=== PATIENT | female | born 1970 | race African-American/Black ===

== ENCOUNTER 2018-10-04 09:11 | Inpatient (IN) | payer MEDICAID ==
[~2018-10-04] VITALS: Ht 152.4 cm; Wt 57.6 kg
[~2018-10-04 09:11] MED LIST: ALBU18HF2 IH; QUET300T2 PO
[2018-10-04] MEDS ORDERED: MAGNESIUM 2 G PREMIX 50 ML IV STA (09:20)
[2018-10-04] MEDS ORDERED: IPRATROPIUM BROMIDE (0.02%) 0.5MG/2.5ML NEB HHN STA (09:20)
[2018-10-04] MEDS ORDERED: ALBUTEROL (0.083%) 2.5MG/3ML NEB HHN STA (09:20)
[2018-10-04] MEDS ORDERED: METHYLPREDNISOLONE SOD SUCC 125 MG/2 ML VIAL IV STA (09:20)
[2018-10-04 09:59] LABS: BASOPHILS % 0.8 % (0.0-2.0); EOSINOPHILS % 8.4 % (0.0-5.0); HEMATOCRIT. 43.6 % (36.0-48.0); HEMOGLOBIN. 14.1 g/dL (12.0-16.0); LYMPHOCYTES % 36.6 % (20.0-50.0); MEAN CORPUSCULAR HEMOGLOBIN 27.9 pg (28.0-32.0); MEAN CORPUSCULAR VOLUME 86.4 fL (81.0-99.0); MEAN PLATELET VOLUME 8.7 fl (7.4-10.4); MONOCYTES % 10.1 % (2.0-8.0); NEUTROPHILS % 44.1 % (40.0-76.0); PLATELET 214 x1000/uL (130-400); RED BLOOD CELL COUNT 5.05 mill/uL (4.2-5.4); RED CELL DISTRIBUTION WIDTH 16.1 % (11.6-14.6)
[2018-10-04 10:00] LABS: CHLORIDE 105 mEq/L (98-107); HCG SCREEN NEGATIVE
[2018-10-04] MEDS ORDERED: LEVOFLOXACIN 500MG PREMIX 100 ML IV ONE (10:30)
[2018-10-04 11:04] LABS: BG CARBOXYHEMOGLOBIN 8.1 % (0.5-1.5); BG DEOXYHEMOGLOBIN 5.9 % (0.0-5.0); BG FRACTION INSPIRED OXYGEN 28; BG HCO3 ACT 27.9 mmol/L (22.0-26.0); BG METHEMOGLOBIN 0.2 % (0.0-1.5); BG OXYGEN SATURATION 93.6 % (92.0-98.5); BG OXYHEMOGLOBIN 85.8 % (94.0-97.0); BG PH 7.286 (7.350-7.450); BG PO2 75.9 mmHg (75.0-100.0); BG SAMPLE SITE RIGHT BRACHIAL; BG TOTAL HEMOGLOBIN 14.2 g/dL (12.0-18.0); BG VENT MODE NASAL CANNULA
[2018-10-04 12:51] LABS: BG BASE EXCESS -1.7 mmol/L (-2.0-2.0); BG BILEVEL POS AIRWAY PRESSURE 15/5; BG CARBOXYHEMOGLOBIN 5.1 % (0.5-1.5); BG DEOXYHEMOGLOBIN 0.7 % (0.0-5.0); BG FRACTION INSPIRED OXYGEN 50; BG HCO3 ACT 26.6 mmol/L (22.0-26.0); BG METHEMOGLOBIN 0.3 % (0.0-1.5); BG OXYGEN SATURATION 99.3 % (92.0-98.5); BG OXYHEMOGLOBIN 93.9 % (94.0-97.0); BG PCO2 60.7 mmHg (35.0-45.0); BG PH 7.259 (7.350-7.450); BG PO2 245.5 mmHg (75.0-100.0); BG SAMPLE SITE RIGHT RADIAL; BG TOTAL HEMOGLOBIN 13.9 g/dL (12.0-18.0); BG VENT MODE MASK - BIPAP; BG VENT RATE 15 set
[2018-10-04 15:30] VITALS: BP 154/82
[2018-10-04 16:00] VITALS: BP 154/82
[2018-10-04] MEDS ORDERED: ACETAMINOPHEN 325MG TABLET PO PRN (16:30)
[2018-10-04] MEDS ORDERED: HYDRALAZINE 20MG/ML VIAL IV PRN (16:30)
[2018-10-04] MEDS ORDERED: MAGNESIUM HYDROXIDE 400MG/5ML 30ML UDC PO PRN (16:30)
[2018-10-04] MEDS ORDERED: GUAIFENESIN 200MG/10ML SUGAR FREE UDC PO PRN (16:30)
[2018-10-04] MEDS ORDERED: DIPHENHYDRAMINE 50MG/ML VIAL IV PRN (16:30)
[2018-10-04] MEDS ORDERED: ONDANSETRON HCL 4MG/2ML INJ IV PRN (16:30)
[2018-10-04] MEDS ORDERED: TEMAZEPAM 15MG CAPSULE PO PRN (16:30)
[2018-10-04] MEDS ORDERED: LORAZEPAM 0.5MG TABLET PO PRN (16:30)
[2018-10-04] MEDS ORDERED: MAGNESIUM/ALUMINUM HYDROXIDE/SIMETHICONE 30ML UDC PO PRN (16:30)
[2018-10-04] MEDS ORDERED: IPRATROPIUM/ALBUTEROL 0.5-3(2.5)MG/3ML NEB INH PRN (16:30)
[2018-10-04] MEDS ORDERED: DEXT 5%/0.45% NACL KCL 10MEQ/L 1,000 ML IV SCH (18:00)
[2018-10-04] MEDS: ENOXAPARIN 40MG/0.4ML SYR SUBCUT SCH (18:13)
[2018-10-04] MEDS: QUETIAPINE FUMARATE 50MG TABLET PO SCH ×2 (18:14→21:08)
[2018-10-04] MEDS: GUAIFENESIN 600MG ER TABLET PO SCH (21:00)
[2018-10-04] MEDS ORDERED: QUETIAPINE FUMARATE 50MG TABLET PO SCH (21:00)
[2018-10-04] MEDS: IPRATROPIUM/ALBUTEROL 0.5-3(2.5)MG/3ML NEB HHN SCH (21:04)
[2018-10-04] MEDS: METHYLPREDNISOLONE SOD SUCC 125 MG/2 ML VIAL IV SCH (21:07)
[2018-10-04] MEDS: SODIUM CHLORIDE 0.9% INJ 3ML FLUSH IVF SCH (21:08)
[2018-10-05] MEDS: IPRATROPIUM/ALBUTEROL 0.5-3(2.5)MG/3ML NEB HHN SCH ×6 (00:20→20:00)
[2018-10-05] MEDS: METHYLPREDNISOLONE SOD SUCC 125 MG/2 ML VIAL IV SCH ×3 (06:11→22:34)
[2018-10-05] MEDS: SODIUM CHLORIDE 0.9% INJ 3ML FLUSH IVF SCH ×3 (06:11→22:34)
[2018-10-05] MEDS: GUAIFENESIN 600MG ER TABLET PO SCH ×2 (09:12→22:33)
[2018-10-05] MEDS: NICOTINE 14MG PATCH TD SCH (09:15)
[2018-10-05] MEDS: AMLODIPINE 5MG TABLET PO SCH (09:15)
[2018-10-05 11:01] LABS: BG BASE EXCESS 0.7 mmol/L (-2.0-2.0); BG CARBOXYHEMOGLOBIN 1.1 % (0.5-1.5); BG DEOXYHEMOGLOBIN 5.2 % (0.0-5.0); BG FRACTION INSPIRED OXYGEN 21; BG METHEMOGLOBIN 0.2 % (0.0-1.5); BG OXYGEN SATURATION 94.7 % (92.0-98.5); BG OXYHEMOGLOBIN 93.5 % (94.0-97.0); BG PCO2 38.9 mmHg (35.0-45.0); BG PH 7.425 (7.350-7.450); BG PO2 73.9 mmHg (75.0-100.0); BG SAMPLE SITE LEFT BRACHIAL; BG VENT MODE ROOM AIR
[2018-10-05] MEDS: LEVOFLOXACIN 500MG PREMIX 100 ML IV SCH (11:52)
[2018-10-05] MEDS: CLONIDINE 0.1MG TABLET PO PRN (18:38)
[2018-10-05] MEDS: ENOXAPARIN 40MG/0.4ML SYR SUBCUT SCH (18:43)
[2018-10-05] MEDS ORDERED: TRAZODONE HCL 100MG TABLET PO SCH (21:00)
[2018-10-06] MEDS: IPRATROPIUM/ALBUTEROL 0.5-3(2.5)MG/3ML NEB HHN SCH ×3 (00:14→09:47)
[2018-10-06] MEDS: METHYLPREDNISOLONE SOD SUCC 125 MG/2 ML VIAL IV SCH (05:12)
[2018-10-06] MEDS: SODIUM CHLORIDE 0.9% INJ 3ML FLUSH IVF SCH (05:12)
[2018-10-06 08:00] VITALS: BP 160/85
[2018-10-06] MEDS ORDERED: QUETIAPINE FUMARATE 50MG TABLET PO SCH (09:00)
[2018-10-06] MEDS: GUAIFENESIN 600MG ER TABLET PO SCH (09:56)
[2018-10-06] MEDS: NICOTINE 14MG PATCH TD SCH (09:57)
[2018-10-06] MEDS: AMLODIPINE 5MG TABLET PO SCH (09:57)
[2018-10-06 12:00] VITALS: BP 165/104
[2018-10-06] MEDS: LEVOFLOXACIN 500MG PREMIX 100 ML IV SCH (12:19)
[2018-10-06] MEDS: CLONIDINE 0.1MG TABLET PO PRN (12:20)
== END 2018-10-06 13:15 | disposition left against medical advice (07) | DRG 140 ==
LOC: EDBEDREQSVC 09:34 → EDBEDREQTM 09:34 → ER 09:49 → 5EST 10:16 → EDBEDREQ 10:18 → ENRESERV 11:16 → 5WST 10-06 11:03
PROVIDERS: ADMIT Internal Medicine; ATTEND Internal Medicine
PROC: 5A09357 Assistance with Respiratory Ventilation, Less than 24 Consecutive Hours, Continuous Positive Airway Pressure (ICD-10-PCS; principal; 2018-10-04)
DX: J44.1 Chronic obstructive pulmonary disease with (acute) exacerbation (principal); J96.02 Acute respiratory failure with hypercapnia; I10 Essential (primary) hypertension; Z53.21 Procedure and treatment not carried out due to patient leaving prior to being seen by health care provider; F99 Mental disorder, not otherwise specified; F17.210 Nicotine dependence, cigarettes, uncomplicated; Z71.6 Tobacco abuse counseling
CPT/HCPCS: 36415; 36600; 71045; 82375; 82805; 83880; 84484; 84703; 93005; 94640; 94644; 94660; 96379; 99285; J1200; J1650; J1956; J2930; J3475; J7050; J7611; J7620

== ENCOUNTER 2020-04-16 03:52 | Inpatient (IN) | payer MEDICAID ==
[~2020-04-16] VITALS: Ht 165.1 cm; Wt 66.2 kg
[2020-04-16] MEDS: IPRATROPIUM/ALBUTEROL 0.5-3(2.5)MG/3ML NEB HHN SCH (04:00)
[2020-04-16] MEDS ORDERED: IPRATROPIUM BROMIDE (0.02%) 0.5MG/2.5ML NEB HHN STA (04:34)
[2020-04-16] MEDS ORDERED: METHYLPREDNISOLONE SOD SUCC 125 MG/2 ML VIAL IV STA (04:34)
[2020-04-16] MEDS ORDERED: ALBUTEROL (0.083%) 2.5MG/3ML NEB HHN STA (04:34)
[2020-04-16] MEDS ORDERED: ASPIRIN 81MG TABLET PO ONE (04:45)
[2020-04-16 05:03] LABS: BASOPHILS % 0.7 % (0.0-2.0); HEMATOCRIT. 42.1 % (36.0-48.0); HEMOGLOBIN. 13.6 g/dL (12.0-16.0); LYMPHOCYTES % 16.3 % (20.0-50.0); MEAN CORPUSCULAR VOLUME 86.9 fL (81.0-99.0); MEAN PLATELET VOLUME 8.9 fl (7.4-10.4); MONOCYTES % 6.7 % (2.0-8.0); NEUTROPHILS % 73.3 % (40.0-76.0); PLATELET 246 x1000/uL (130-400); RED BLOOD CELL COUNT 4.84 mill/uL (4.2-5.4); RED CELL DISTRIBUTION WIDTH 15.1 % (11.6-14.6)
[2020-04-16 05:06] LABS: CHLORIDE 99 mEq/L (98-107)
[2020-04-16 05:08] LABS: INR 0.9; PROTHROMBIN TIME 9.9 sec (9.6-11.0)
[2020-04-16 05:24] LABS: CLARITY URINE CLEAR (CLEAR); COLOR URINE YELLOW (YELLOW); KETONES URINE NEGATIVE (NEGATIVE); LEUKOCYTE ESTERASE URINE NEGATIVE (NEGATIVE); NITRITE URINE NEGATIVE (NEGATIVE); OCCULT BLOOD URINE NEGATIVE (NEGATIVE); PH URINE 7.5 (4.5-8.0); PROTEIN URINE NEGATIVE (NEGATIVE); SPECIFIC GRAVITY URINE 1.005 (1.005-1.030); UROBILINOGEN URINE 0.2 E.U./dL (0.2-1.0)
[2020-04-16] MEDS ORDERED: MAGNESIUM 2 G PREMIX 50 ML IV ONE (05:45)
[2020-04-16 08:54] LABS: BG BASE EXCESS 3.7 mmol/L (-2.0-2.0); BG DEOXYHEMOGLOBIN 0.3 % (0.0-5.0); BG FRACTION INSPIRED OXYGEN 100; BG HCO3 ACT 32.3 mmol/L (22.0-26.0); BG METHEMOGLOBIN 0.4 % (0.0-1.5); BG OXYGEN SATURATION 99.7 % (92.0-98.5); BG OXYHEMOGLOBIN 98.3 % (94.0-97.0); BG PCO2 68.4 mmHg (35.0-45.0); BG PH 7.292 (7.350-7.450); BG PO2 438.8 mmHg (75.0-100.0); BG SAMPLE SITE LEFT BRACHIAL; BG TOTAL HEMOGLOBIN 13.7 g/dL (12.0-18.0); BG TOTAL RESPIRATORY RATE 24 b/min; BG VENT MODE MASK - BIPAP
[2020-04-16] MEDS ORDERED: METHYLPREDNISOLONE SOD SUCC 125 MG/2 ML VIAL IV NR (14:15)
[2020-04-16] MEDS ORDERED: QUETIAPINE FUMARATE 50MG TABLET PO SCH (14:15)
[2020-04-16] MEDS ORDERED: IPRATROPIUM/ALBUTEROL 0.5-3(2.5)MG/3ML NEB HHN PRN (15:00)
[2020-04-16] MEDS ORDERED: ONDANSETRON HCL 4MG/2ML INJ IV PRN (15:00)
[2020-04-16] MEDS ORDERED: LORAZEPAM 2MG/ML CPJ IV PRN (15:00)
[2020-04-16] MEDS ORDERED: MAGNESIUM/ALUMINUM HYDROXIDE/SIMETHICONE 30ML UDC PO PRN (15:00)
[2020-04-16] MEDS ORDERED: ACETAMINOPHEN 325MG TABLET PO PRN (15:00)
[2020-04-16] MEDS ORDERED: CLONIDINE 0.1MG TABLET PO PRN (15:00)
[2020-04-16] MEDS ORDERED: DIPHENHYDRAMINE 50MG/ML VIAL IV PRN (15:00)
[2020-04-16] MEDS: ENOXAPARIN 40MG/0.4ML SYR SUBCUT SCH (16:00)
[2020-04-16] MEDS ORDERED: MVI, ADULT NO.1 10 ML, FOLIC ACID 1 MG, THIAMINE HCL 100 MG in SODIUM CHLORIDE 0.9% 1,0... IV ONE ×4 (16:00)
[2020-04-16] MEDS: FAMOTIDINE 20MG TABLET PO SCH (22:10)
[2020-04-16] MEDS: QUETIAPINE FUMARATE 50MG TABLET PO SCH (22:10)
[2020-04-17] MEDS: IPRATROPIUM/ALBUTEROL 0.5-3(2.5)MG/3ML NEB HHN SCH ×4 (07:54→19:47)
[2020-04-17] MEDS: SODIUM CHLORIDE 0.9% INJ 3ML FLUSH IVF SCH ×3 (11:02→22:00)
[2020-04-17] MEDS: QUETIAPINE FUMARATE 50MG TABLET PO SCH ×2 (11:03→21:00)
[2020-04-17] MEDS: FAMOTIDINE 20MG TABLET PO SCH ×2 (11:03→21:00)
[2020-04-17] MEDS: METHYLPREDNISOLONE SOD SUCC 125 MG/2 ML VIAL IV SCH ×2 (11:05→15:00)
[2020-04-17] MEDS: GUAIFENESIN 200MG/10ML SUGAR FREE UDC PO PRN (11:07)
[2020-04-17] MEDS: GUAIFENESIN 600MG ER TABLET PO SCH ×2 (15:04→21:00)
[2020-04-17] MEDS: LEVOFLOXACIN 500MG PREMIX 100 ML IV SCH (15:09)
[2020-04-17] MEDS: ENOXAPARIN 40MG/0.4ML SYR SUBCUT SCH (15:09)
[2020-04-18] MEDS: IPRATROPIUM/ALBUTEROL 0.5-3(2.5)MG/3ML NEB HHN SCH ×4 (04:39→21:34)
[2020-04-18] MEDS: SODIUM CHLORIDE 0.9% INJ 3ML FLUSH IVF SCH ×3 (06:00→21:26)
[2020-04-18] MEDS: METHYLPREDNISOLONE SOD SUCC 125 MG/2 ML VIAL IV SCH ×2 (06:00→13:35)
[2020-04-18] MEDS: QUETIAPINE FUMARATE 50MG TABLET PO SCH ×2 (09:00→20:02)
[2020-04-18] MEDS: GUAIFENESIN 600MG ER TABLET PO SCH ×2 (09:00→20:02)
[2020-04-18] MEDS: FAMOTIDINE 20MG TABLET PO SCH ×2 (09:00→20:03)
[2020-04-18 11:44] VITALS: BP 126/76
[2020-04-18 11:50] VITALS: BP 126/76
[2020-04-18] MEDS ORDERED: DIPHENHYDRAMINE 50MG CAPSULE PO PRN (13:45)
[2020-04-18] MEDS ORDERED: FENTANYL CITRATE/PF 50MCG/ML 2ML VIAL ONE (15:05)
[2020-04-18] MEDS ORDERED: MIDAZOLAM HCL 5 MG/5 ML VIAL ONE ×2 (15:05→16:17)
[2020-04-18 16:00] VITALS: BP 148/92
[2020-04-18] MEDS: BENZONATATE 100MG CAPSULE PO PRN (16:03)
[2020-04-18] MEDS: ACETAMINOPHEN 325MG TABLET PO PRN (16:03)
[2020-04-18] MEDS: ENOXAPARIN 40MG/0.4ML SYR SUBCUT SCH (16:09)
[2020-04-18] MEDS: LEVOFLOXACIN 500MG PREMIX 100 ML IV SCH (16:15)
[2020-04-18 20:00] VITALS: BP 150/87
[2020-04-18] MEDS: METHYLPREDNISOLONE SOD SUCC 40 MG/ML VIAL IV SCH (21:26)
[2020-04-18] MEDS: PROMETHAZINE/DEXTROMETHORPHAN 6.25-15MG/5ML BOTTLE 120ML PO PRN (21:27)
[2020-04-18 22:00] VITALS: BP 142/94
[2020-04-19] VITALS (8 sets, daily range): BP systolic 137–167; BP diastolic 79–97
[2020-04-19] MEDS: METHYLPREDNISOLONE SOD SUCC 40 MG/ML VIAL IV SCH ×3 (05:27→21:00)
[2020-04-19] MEDS: SODIUM CHLORIDE 0.9% INJ 3ML FLUSH IVF SCH ×3 (05:28→22:00)
[2020-04-19] MEDS: PROMETHAZINE/DEXTROMETHORPHAN 6.25-15MG/5ML BOTTLE 120ML PO PRN (05:28)
[2020-04-19] MEDS: IPRATROPIUM/ALBUTEROL 0.5-3(2.5)MG/3ML NEB HHN SCH ×3 (06:20→13:28)
[2020-04-19 07:17] LABS: *AMPHETAMINES SCREEN URINE NEGATIVE (NEGATIVE); *BARBITURATES SCREEN URINE NEGATIVE (NEGATIVE); *BENZODIAZEPINES SCREEN URINE NEGATIVE (NEGATIVE); *COCAINE SCREEN URINE NEGATIVE (NEGATIVE)
[2020-04-19 07:18] LABS: CANNABINOID URINE SCREEN NEGATIVE (NEGATIVE); METHADONE URINE SCREEN NEGATIVE (NEGATIVE); OPIATES URINE SCREEN NEGATIVE (NEGATIVE); PHENCYCLIDINE URINE SCREEN NEGATIVE (NEGATIVE)
[2020-04-19] MEDS: GUAIFENESIN 600MG ER TABLET PO SCH ×2 (09:02→20:59)
[2020-04-19] MEDS: QUETIAPINE FUMARATE 50MG TABLET PO SCH ×2 (09:02→21:00)
[2020-04-19] MEDS: ENOXAPARIN 40MG/0.4ML SYR SUBCUT SCH (09:02)
[2020-04-19] MEDS: FAMOTIDINE 20MG TABLET PO SCH ×2 (09:03→21:01)
[2020-04-19] MEDS ORDERED: ASPI-1406 PO (10:24)
[2020-04-19] MEDS ORDERED: AMLO10TA80 PO (10:24)
[2020-04-19] MEDS ORDERED: DOCU-272 PO (10:24)
[2020-04-19] MEDS ORDERED: LISI-604 PO (10:24)
[2020-04-19] MEDS ORDERED: LOSARTAN POTASSIUM 50 MG TABLET PO SCH (10:30)
[2020-04-19] MEDS ORDERED: FLUT1BLS12 IH (10:55)
[2020-04-19] MEDS ORDERED: MONT10TA96 PO (10:55)
[2020-04-19] MEDS ORDERED: GABA-529 PO (10:55)
[2020-04-19] MEDS ORDERED: TIOT4MIS2 IH (10:55)
[2020-04-19] MEDS ORDERED: AMLODIPINE 10MG TABLET PO SCH ×2 (12:15)
[2020-04-19] MEDS: LISINOPRIL 20MG TABLET PO SCH (12:27)
[2020-04-19] MEDS: GUAIFENESIN 200MG/10ML SUGAR FREE UDC PO PRN (12:30)
[2020-04-19] MEDS: BENZONATATE 100MG CAPSULE PO PRN (12:30)
[2020-04-19] MEDS: NICOTINE 7MG PATCH TD SCH (16:01)
[2020-04-19] MEDS: LEVOFLOXACIN 500MG PREMIX 100 ML IV SCH (18:09)
[2020-04-19] MEDS: DILTIAZEM HCL 60MG TABLET PO SCH (21:00)
[2020-04-20] VITALS: BP 123/81
[2020-04-20] MEDS: PROMETHAZINE/DEXTROMETHORPHAN 6.25-15MG/5ML BOTTLE 120ML PO PRN ×3 (00:20→19:29)
[2020-04-20] MEDS: IPRATROPIUM/ALBUTEROL 0.5-3(2.5)MG/3ML NEB HHN SCH ×4 (01:44→21:05)
[2020-04-20] MEDS: SODIUM CHLORIDE 0.9% INJ 3ML FLUSH IVF SCH ×3 (06:00→21:36)
[2020-04-20] MEDS: DILTIAZEM HCL 60MG TABLET PO SCH ×3 (06:30→21:34)
[2020-04-20] MEDS: NICOTINE 7MG PATCH TD SCH ×2 (09:00→09:18)
[2020-04-20] MEDS: ENOXAPARIN 40MG/0.4ML SYR SUBCUT SCH (09:00)
[2020-04-20] MEDS: GUAIFENESIN 200MG/10ML SUGAR FREE UDC PO PRN (09:15)
[2020-04-20 09:16] VITALS: BP 126/65
[2020-04-20] MEDS: BENZONATATE 100MG CAPSULE PO PRN (09:16)
[2020-04-20] MEDS: QUETIAPINE FUMARATE 50MG TABLET PO SCH ×2 (09:16→21:33)
[2020-04-20] MEDS: METHYLPREDNISOLONE SOD SUCC 40 MG/ML VIAL IV SCH ×2 (09:17→21:32)
[2020-04-20] MEDS: GUAIFENESIN 600MG ER TABLET PO SCH ×2 (09:17→21:32)
[2020-04-20] MEDS: LISINOPRIL 20MG TABLET PO SCH (09:18)
[2020-04-20] MEDS: FAMOTIDINE 20MG TABLET PO SCH ×2 (09:19→21:33)
[2020-04-20] MEDS: ACETAMINOPHEN 325MG TABLET PO PRN (09:22)
[2020-04-20 10:59] VITALS: BP 131/52
[2020-04-20 12:20] VITALS: BP 131/84
[2020-04-20 15:41] VITALS: BP 139/98
[2020-04-20] MEDS: LEVOFLOXACIN 500MG PREMIX 100 ML IV SCH (17:50)
[2020-04-20] MEDS ORDERED: MED4 MT (18:39)
[2020-04-20] MEDS ORDERED: PROM25VI IM (18:39)
[2020-04-20 20:00] VITALS: BP 143/87
[2020-04-21] VITALS (12 sets, daily range): BP systolic 119–152; BP diastolic 51–95
[2020-04-21] MEDS: IPRATROPIUM/ALBUTEROL 0.5-3(2.5)MG/3ML NEB HHN SCH ×4 (03:25→21:34)
[2020-04-21] MEDS: SODIUM CHLORIDE 0.9% INJ 3ML FLUSH IVF SCH ×3 (06:25→21:35)
[2020-04-21] MEDS: DILTIAZEM HCL 60MG TABLET PO SCH ×3 (06:25→21:21)
[2020-04-21] MEDS: METHYLPREDNISOLONE SOD SUCC 40 MG/ML VIAL IV SCH ×2 (08:43→21:20)
[2020-04-21] MEDS: GUAIFENESIN 600MG ER TABLET PO SCH ×3 (08:49→21:20)
[2020-04-21] MEDS: LISINOPRIL 20MG TABLET PO SCH (08:49)
[2020-04-21] MEDS: ENOXAPARIN 40MG/0.4ML SYR SUBCUT SCH (08:50)
[2020-04-21] MEDS: QUETIAPINE FUMARATE 50MG TABLET PO SCH ×2 (08:50→21:20)
[2020-04-21] MEDS: FAMOTIDINE 20MG TABLET PO SCH ×2 (08:51→21:20)
[2020-04-21] MEDS: NICOTINE 7MG PATCH TD SCH (08:51)
[2020-04-22] VITALS (7 sets, daily range): BP systolic 130–144; BP diastolic 69–92
[2020-04-22] MEDS: IPRATROPIUM/ALBUTEROL 0.5-3(2.5)MG/3ML NEB HHN SCH ×3 (02:05→14:18)
[2020-04-22] MEDS: SODIUM CHLORIDE 0.9% INJ 3ML FLUSH IVF SCH ×2 (05:42→13:50)
[2020-04-22] MEDS: DILTIAZEM HCL 60MG TABLET PO SCH ×2 (05:52→13:50)
[2020-04-22] MEDS: GUAIFENESIN 600MG ER TABLET PO SCH (09:34)
[2020-04-22] MEDS: METHYLPREDNISOLONE SOD SUCC 40 MG/ML VIAL IV SCH (09:34)
[2020-04-22] MEDS: QUETIAPINE FUMARATE 50MG TABLET PO SCH (09:34)
[2020-04-22] MEDS: LISINOPRIL 20MG TABLET PO SCH (09:38)
[2020-04-22] MEDS: ENOXAPARIN 40MG/0.4ML SYR SUBCUT SCH (09:38)
[2020-04-22] MEDS: NICOTINE 7MG PATCH TD SCH (09:38)
[2020-04-22] MEDS: FAMOTIDINE 20MG TABLET PO SCH (09:40)
[2020-04-22] MEDS: PROMETHAZINE/DEXTROMETHORPHAN 6.25-15MG/5ML BOTTLE 120ML PO PRN (13:51)
[2020-04-22] MEDS ORDERED: TOPUD MT (14:52)
== END 2020-04-22 15:45 | disposition home or self-care (01) | DRG 133 ==
LOC: ER 03:52 → MICUSO 05:44 → EDBEDREQSVC 04-17 10:42 → 3WST 04-18 09:58
PROVIDERS: ADMIT Internal Medicine; ATTEND Internal Medicine
PROC: 5A09357 Assistance with Respiratory Ventilation, Less than 24 Consecutive Hours, Continuous Positive Airway Pressure (ICD-10-PCS; principal; 2020-04-16)
DX: J96.21 Acute and chronic respiratory failure with hypoxia (principal); J44.0 Chronic obstructive pulmonary disease with (acute) lower respiratory infection; J44.1 Chronic obstructive pulmonary disease with (acute) exacerbation; J96.22 Acute and chronic respiratory failure with hypercapnia; J18.9 Pneumonia, unspecified organism; E87.2 Acidosis; F99 Mental disorder, not otherwise specified; I10 Essential (primary) hypertension; F41.9 Anxiety disorder, unspecified; F17.210 Nicotine dependence, cigarettes, uncomplicated; F12.90 Cannabis use, unspecified, uncomplicated; Z20.822 Contact with and (suspected) exposure to COVID-19
CPT/HCPCS: 36415; 36600; 71045; 80053; 80305; 81003; 82375; 82805; 83605; 83880; 84145; 84484; 85025; 87426; 93005; 94640; 97110; 97116; 97162; 99291; C1893; C9803; J1650; J1956; J2250; J2920; J2930; J3010; J3411; J3475; J3490; J7030; Q0163; U0003

== ENCOUNTER 2020-04-27 03:18 | Emergency (ER) | payer MEDICAID, OTHER ==
[~2020-04-27] VITALS: Ht 157.5 cm; Wt 60.0 kg
[~2020-04-27 03:18] MED LIST changes: +ASPI-1406 PO; +DOCU-272 PO; +FLUT1BLS12 IH; +GABA-529 PO; +LISI-604 PO; +MED4 MT; +MONT10TA96 PO; +PROM25VI IM; +TIOT4MIS2 IH; +TOPUD MT
[2020-04-27] MEDS ORDERED: METHYLPREDNISOLONE SOD SUCC 125 MG/2 ML VIAL IV STA (04:19)
[2020-04-27] MEDS ORDERED: IPRATROPIUM BROMIDE (0.02%) 0.5MG/2.5ML NEB HHN STA (04:19)
[2020-04-27] MEDS: ALBUTEROL (0.083%) 2.5MG/3ML NEB HHN SCH ×3 (04:46→05:36)
[2020-04-27 05:06] LABS: BASOPHILS % 0.4 % (0.0-2.0); HEMATOCRIT. 42.1 % (36.0-48.0); HEMOGLOBIN. 13.8 g/dL (12.0-16.0); MEAN CORPUSCULAR HEMOGLOBIN 27.7 pg (28.0-32.0); MEAN CORPUSCULAR VOLUME 84.3 fL (81.0-99.0); MEAN PLATELET VOLUME 8.4 fl (7.4-10.4); MONOCYTES % 5.1 % (2.0-8.0); NEUTROPHILS % 72.5 % (40.0-76.0); PLATELET 289 x1000/uL (130-400); RED BLOOD CELL COUNT 4.99 mill/uL (4.2-5.4); RED CELL DISTRIBUTION WIDTH 15.2 % (11.6-14.6)
[2020-04-27 07:34] VITALS: BP 152/80
[2020-04-27] MEDS ORDERED: METHYLPREDNISOLONE SOD SUCC 40 MG/ML VIAL IV SCH (09:00)
[2020-04-27] MEDS ORDERED: ACETAMINOPHEN 325MG TABLET PO PRN (09:15)
[2020-04-27] MEDS ORDERED: ALBUTEROL 6.7GM HFA INHALER ORI PRN (09:15)
[2020-04-27] MEDS ORDERED: ONDANSETRON HCL 4MG/2ML INJ IV PRN (09:15)
[2020-04-27] MEDS ORDERED: AMLODIPINE 10MG TABLET PO SCH (09:15)
== END 2020-04-27 11:30 | disposition left against medical advice (07) ==
LOC: ER 03:18 → EDUNIT# 03:18 → CANRESERV 11:13 → ENRESERV 11:13 → ER 11:30 → CANBEDREQ 11:36
DX: J44.1 Chronic obstructive pulmonary disease with (acute) exacerbation (principal); J96.91 Respiratory failure, unspecified with hypoxia; I10 Essential (primary) hypertension; F41.9 Anxiety disorder, unspecified; F17.210 Nicotine dependence, cigarettes, uncomplicated; Z88.6 Allergy status to analgesic agent; Z20.822 Contact with and (suspected) exposure to COVID-19; Z79.899 Other long term (current) drug therapy; Z79.82 Long term (current) use of aspirin
CPT/HCPCS: 36415; 71045; 83605; 85025; 93005; 94640; 96374; 96375; 99285; C9803; J2920; J2930; U0003; Z7610